=== PATIENT | male | born 1995 | race Caucasian/White ===

== ENCOUNTER 2017-04-21 20:25 | Emergency (ER) | payer OTHER ==
[~2017-04-21] VITALS: Ht 188 cm; Wt 52.2 kg
[2017-04-21 20:27] VITALS: BP 147/93
== END 2017-04-21 21:27 | disposition home or self-care (01) ==
LOC: ED 21:20
DX: L25.9 Unspecified contact dermatitis, unspecified cause (principal); F15.20 Other stimulant dependence, uncomplicated
CPT/HCPCS: 99283

== ENCOUNTER 2017-05-13 13:13 | Emergency (ER) | payer OTHER ==
[~2017-05-13] VITALS: Ht 188 cm; Wt 54.1 kg
[2017-05-13] MEDS ORDERED: METH-356 PO (13:45)
[2017-05-13] MEDS ORDERED: SODIUM CHLORIDE 0.9% 1,000ML IVBOLUS ONE (14:30)
[2017-05-13 14:32] LABS: ASPARTATE AMINO TRANSFERASE 42 U/L (15-37); BLOOD UREA NITROGEN 15 mg/dL (7-18)
[2017-05-13 14:34] LABS: ACETAMINOPHEN < 2 mcg/mL (10-30)
[2017-05-13 14:42] LABS: DAU SCREEN DISCLAIMER
[2017-05-13 16:12] VITALS: BP 125/82
== END 2017-05-13 16:14 | disposition home or self-care (01) ==
LOC: ED 13:29
DX: F15.150 Other stimulant abuse with stimulant-induced psychotic disorder with delusions (principal); F12.10 Cannabis abuse, uncomplicated
CPT/HCPCS: 36415; 71010; 80053; 80307; 80329; 81003; 85025; 93005; 96360; 99285; J7030; G0480

== ENCOUNTER 2017-05-14 21:20 | Observation (INO) | payer OTHER ==
[~2017-05-14] VITALS: Ht 190.5 cm; Wt 52.9 kg
[~2017-05-14 21:20] MED LIST: METH-356 PO
[2017-05-14 21:37] LABS: DAU SCREEN DISCLAIMER
[2017-05-14 22:39] LABS: ASPARTATE AMINO TRANSFERASE 34 U/L (15-37); BLOOD UREA NITROGEN 12 mg/dL (7-18)
[2017-05-14 22:45] LABS: ACETAMINOPHEN < 2 mcg/mL (10-30)
[2017-05-15] MEDS ORDERED: LORazepam 1MG TABLET PO PRN (14:00)
[2017-05-15] MEDS ORDERED: ACETAMINOPHEN 325 MG TABLET PO PRN (14:00)
[2017-05-15] MEDS ORDERED: DIPHENHYDRAMINE 25 MG CAPSULE PO PRN (14:00)
[2017-05-15] MEDS ORDERED: ONDANSETRON ODT 4 MG PO PRN (14:00)
[2017-05-15 14:17] LABS: HIV 1&2 ANTIBODY SCREEN Nonreactive (Nonreactive); HIV-1 p24 ANTIGEN Nonreactive (Nonreactive)
[2017-05-15] MEDS ORDERED: DIPHENHYDRAMINE 25 MG CAPSULE ONE (14:24)
[2017-05-16 08:47] VITALS: BP 138/91
[2017-05-16] MEDS ORDERED: METHADONE INTENSOL 10 MG/ML ORAL CONC PO SCH (09:00)
[2017-05-16] MEDS ORDERED: DIPH25CA61 PO (14:35)
[2017-05-16] MEDS ORDERED: METH10OR3 PO (14:35)
== END 2017-05-16 15:00 ==
LOC: ED 23:14 → EDIP 05-15 12:48 → 3E 05-15 22:41
PROVIDERS: ADMIT Internal Medicine; ATTEND Internal Medicine
DX: T40.3X2A Poisoning by methadone, intentional self-harm, initial encounter (principal); L29.9 Pruritus, unspecified; E43 Unspecified severe protein-calorie malnutrition; F32.9 Major depressive disorder, single episode, unspecified; F19.20 Other psychoactive substance dependence, uncomplicated; Y92.89 Other specified places as the place of occurrence of the external cause
CPT/HCPCS: 36415; 80053; 80307; 80329; 85025; 86592; 86703; 86704; 86706; 86708; 86709; 86803; 87340; 87899; 99285; G0378; Q0163; G0435; G0480

== ENCOUNTER 2017-06-01 02:47 | Emergency (ER) | payer OTHER ==
[~2017-06-01] VITALS: Ht 188 cm; Wt 55.9 kg
[~2017-06-01 02:47] MED LIST changes: +DIPH25CA61 PO; +METH10OR3 PO
[2017-06-01 02:49] VITALS: BP 138/98
[2017-06-02] MEDS ORDERED: CITA20TA9 PO (05:31)
[2017-06-02] MEDS ORDERED: QUET100T4 PO (05:31)
[2017-06-02] MEDS ORDERED: MIRT15TA PO (14:00)
== END 2017-06-01 03:43 | disposition home or self-care (01) ==
LOC: ED 03:20
DX: Z76.0 Encounter for issue of repeat prescription (principal); F11.10 Opioid abuse, uncomplicated; F15.10 Other stimulant abuse, uncomplicated; Z72.89 Other problems related to lifestyle
CPT/HCPCS: 99283